=== PATIENT | male | born 1980 | race Caucasian/White ===

== ENCOUNTER → 2020-11-14 | Outpatient (CLI) | payer OTHER ==
--- NOTE | 2020-11-14 08:18 | US ---
EXAMINATION TYPE: US abdomen limited DATE OF EXAM: 11/14/2020 COMPARISON: NONE CLINICAL HISTORY: R10.11 Right upper quadrant pain. Pain, abnormal labs EXAM MEASUREMENTS: Liver Length: 17.4 cm Gallbladder Wall: 0.2 cm CBD: 0.4 cm Right Kidney: 12.3 x 6.8 x 5.9 cm Pancreas: wnl, tail obscured by overlying bowel gas Liver: Heterogeneous with possible fatty sparing near GB, difficult to penetrate Gallbladder: wnl Evidence for sonographic Taylor's sign: No CBD: wnl Right Kidney: wnl IMPRESSION: Hepatic steatosis with areas of focal fatty sparing.
== END | disposition home or self-care (01) ==
LOC: RADUSWWP 07:38
PROVIDERS: ATTEND Family Medicine
DX: K76.0 Fatty (change of) liver, not elsewhere classified (principal)
CPT/HCPCS: 76705